=== PATIENT | male | born 1955 | race Caucasian/White ===

== ENCOUNTER → 2019-10-29 10:27 | Outpatient (CLI) | payer OTHER, MEDICAID, SELFPAY ==
--- NOTE | 2019-10-29 | DI.RAD.S_ITS ---
PROCEDURE: XR KNEE RT 3V INDICATIONS: CHRONIC PAIN OF BOTH KNEES TECHNIQUE: 3 views of the knee were acquired. COMPARISON: None. FINDINGS: Bones: No fractures or dislocations. No suspicious bony lesions. Scattered degenerative subchondral sclerosis and spurring. Mild to moderate narrowing of the medial and patellofemoral joint spaces. Soft tissues: No joint effusion. No suspicious soft tissue calcifications. 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 on 10/29/2019 at 12:52 Approved by: Ronald Santana M.D. on 10/29/2019 at 12:53
--- NOTE | 2019-10-29 | DI.RAD.S_ITS ---
PROCEDURE: XR KNEE LT 3V INDICATIONS: CHRONIC PAIN OF BOTH KNEES TECHNIQUE: 3 views of the knee were acquired. COMPARISON: None. FINDINGS: Bones: No fractures or dislocations. No suspicious bony lesions. Scattered degenerative subchondral sclerosis and spurring. Subchondral lucency projects in the medial femoral condyle. Moderate narrowing of the medial joint space. Moderate narrowing of the lateral patellofemoral joint space Soft tissues: No joint effusion. No suspicious soft tissue calcifications. IMPRESSION: Moderate left knee joint degeneration Subchondral lucency in the medial femoral condyle potentially osteochondral defect however could be further assessed with MRI as clinically warranted Dictated by: Ronald Santana M.D. on 10/29/2019 at 12:50 Approved by: Ronald Santana M.D. on 10/29/2019 at 12:52
== END ==
PROVIDERS: PCP Family Medicine; Referring Provider Family Medicine; Visit Provider Family Medicine
DX: M25.561 Pain in right knee (principal); M25.562 Pain in left knee; M17.0 Bilateral primary osteoarthritis of knee; G89.29 Other chronic pain
CPT/HCPCS: 73562

== ENCOUNTER → 2020-01-23 10:47 | Outpatient (CLI) | payer OTHER, MEDICAID, SELFPAY ==
--- NOTE | 2020-01-30 11:14 | PM.PFT.1 ---
Pulmonary Function Test Referral & Results Date Patient Seen: 01/23/20 Requesting provider: Chris Clements Results: The spirometry demonstrates an FVC of 4.29 L which is 85% of predicted. The FEV1 was measured at 3.28 L which is 87% of predicted. The FEV1/FVC ratio was 76 which is 101% of predicted. Following the administration of bronchodilator there was a 15% improvement in FEV1 and a 62% improvement in FEF 25-75%. Lung volumes show an SVC of 3.83 L which is 76% of predicted. The diffusing capacity was measured at 30.62 which is 87% of predicted. The maximum voluntary ventilation was normal Interpretation: This study demonstrates perhaps mild obstructive lung disease based on slight reduction FEV1 as well as modest improvement following bronchodilator with a 15% improvement in FEV1 and a 62% improvement in FEF 25-75% (small airway flow) There is also minimal reduction in lung volumes suggesting mild restrictive lung disease There is also potentially a very minimal reduction in diffusing capacity suggesting an element of disease at the capillary alveolar level
== END ==
PROVIDERS: PCP Family Medicine; Referring Provider Family Medicine; Visit Provider Family Medicine
DX: R06.02 Shortness of breath (principal); R53.83 Other fatigue
CPT/HCPCS: 94060; 94726; 94729

== ENCOUNTER → 2020-09-30 11:22 | Outpatient (CLI) | payer OTHER, MEDICAID, SELFPAY ==
[2020-09-30 20:21] LABS: Alanine Aminotransferase 23 IU/L (<50); Albumin 3.9 g/dL (3.5-5.0); Albumin Globulin Ratio 1.4 (1.0-2.8); Alkaline Phosphatase 78 U/L (38-126); Aspartate Aminotransferase 29 IU/L (17-59); BUN Creatinine Ratio 24.3 (6-22); Bilirubin Total 0.5 mg/dL (0.2-1.3); Blood Urea Nitrogen 17 mg/dL (9-20); Calcium 9.2 mg/dL (8.4-10.2); Carbon Dioxide 24 mmol/L (22-32); Chloride 105 mmol/L (98-107); Estimated Glomerular Filt Rate > 60.0 mL/min (>60); Globulin 2.7 g/dL (1.7-4.1); Glucose 93 mg/dL (80-110); HEMOLYSIS 41 (0-50); Potassium 4.5 mmol/L (3.4-5.1); Sodium 137 mmol/L (137-145); Total Protein 6.6 g/dL (6.3-8.2)
[2020-09-30 20:39] LABS: Vitamin D 25 Hydroxy (D3) 48.6 ng/mL (30.0-100.0)
[2020-09-30 20:51] LABS: TSH w/ Reflex to FT4 1.88 uIU/mL (0.47-4.68)
== END ==
PROVIDERS: PCP Family Medicine; Visit Provider Physician Assistant Medical
DX: R42 Dizziness and giddiness (principal); R53.83 Other fatigue
CPT/HCPCS: 80053; 82306; 84443

== ENCOUNTER → 2020-10-16 13:35 | Outpatient (CLI) | payer OTHER, MEDICAID, SELFPAY ==
[2020-10-16 19:36] LABS: Hemoglobin A1C% w Est Avg Glu 4.8 % (4.0-6.0)
== END ==
PROVIDERS: PCP Family Medicine; Visit Provider Physician Assistant Medical
DX: R42 Dizziness and giddiness (principal); R53.83 Other fatigue
CPT/HCPCS: 83036

== ENCOUNTER → 2021-07-05 09:41 | Outpatient (CLI) | payer OTHER, MEDICAID, SELFPAY ==
[2021-07-05 19:41] LABS: COVID19 - ORCAS (NP or Nasal) Negative (Negative)
== END ==
PROVIDERS: PCP Physician Assistant Medical; Visit Provider Physician Assistant
DX: Z20.822 Contact with and (suspected) exposure to COVID-19 (principal)
CPT/HCPCS: U0003

== ENCOUNTER → 2022-02-25 18:54 | Outpatient (CLI) | payer MEDICARE, OTHER, MEDICAID, SELFPAY ==
--- NOTE | 2022-02-25 18:57 | DI.MRI.S_ITS ---
PROCEDURE: MR HEAD/BRAIN WO/W CON INDICATIONS: Altered mental status, unspecified TECHNIQUE: Noncontrast axial T1 spin echo, axial T2 fast spin echo, sagittal and axial FLAIR, coronal T2 fast spin echo, axial gradient echo, axial diffusion and ADC through the brain. After the administration of contrast, axial and coronal and sagittal T1 spin echo with fat saturation through the brain. COMPARISON: None. FINDINGS: Image quality: Excellent. CSF spaces: Basal cisterns are patent. No extra-axial fluid collections. Ventricles are normal in size and shape. Brain: No midline shift. No intracranial bleeds or masses. No abnormal intracranial enhancement. There is periventricular white matter chronic small vessel ischemic change. The brainstem appears normal. Diffusion-weighted images demonstrate no acute ischemic insults. No chronic ischemic insults. Normal intravascular flow voids are present. Skull and face: Calvarial marrow is normal in signal. Orbits appear normal. Sinuses: Sinuses and mastoids appear clear. IMPRESSION: 1. No acute intracranial process. 2. Mild to moderate periventricular and subcortical white matter T2 hyperintensities most suggestive of chronic microvascular ischemic changes. Dictated by: Thao Lua M.D. on 02/28/2022 at 11:27 Approved by: Thao Lua M.D. on 02/28/2022 at 11:31
== END ==
PROVIDERS: PCP Physician Assistant Medical; Referring Provider Family Medicine; Visit Provider Family Medicine
DX: R41.82 Altered mental status, unspecified (principal)
CPT/HCPCS: 70553; A9579

== ENCOUNTER 2022-08-19 18:15 | Observation (INO) | payer MEDICARE, OTHER, SELFPAY ==
[2022-08-19] VITALS (15 sets, daily range): BP systolic 147–188; BP diastolic 72–95; PULSE 54–68; RESP 15–24; TEMP 36.2–36.6; O2SAT 94–99; BMI 38.0
--- NOTE | 2022-08-19 18:23 | DI.CT.S_ITS ---
PROCEDURE: CT STROKE INDICATIONS: stroke symptoms x20 minutes TECHNIQUE: Noncontrast 4.5 mm thick angled axial sections acquired from the foramen magnum to the vertex, with coronal reformats. For radiation dose reduction, the following was used: automated exposure control, adjustment of mA and/or kV according to patient size. COMPARISON: None. FINDINGS: Image quality: Excellent. CSF spaces: Basal cisterns are patent. No extra-axial fluid collections. Ventricles are normal in size and shape. Brain: No midline shift. No intracranial masses or hemorrhage. Mcgill-white matter interface is normal. Skull and face: Calvarium and visualized facial bones are intact, without suspicious lesions. Sinuses: Visualized sinuses and mastoids are clear. IMPRESSION: CT head without acute intracranial abnormalities. No mass or mass effect visualized. Findings were discussed with Dr. Dawson at 1754 hrs AKST. This study fulfills neurological imaging criteria for inclusion or exclusion of acute stroke therapies based on available published neurological imaging guidelines. Dictated by: Rolando Duong M.D. on 08/19/2022 at 17:53 Approved by: Rolando Duong M.D. on 08/19/2022 at 17:55
--- NOTE | 2022-08-19 18:24 | DI.CT.S_ITS ---
PROCEDURE: CT ANGIO HEAD AND NECK INDICATIONS: stroke symptoms x20 minutes TECHNIQUE: After the administration of intravenous contrast, 1 mm thick sections acquired from the aortic arch through the [place] of [place]. Post-contrast 4.5 mm thick sections then re-acquired from the foramen magnum to the vertex. 3-dimensional sypjbju-[id number]-[id number] (MIP) and/or volume rendering reformats were acquired of the central intracranial vasculature and neck separately. For radiation dose reduction, the following was used: automated exposure control, adjustment of mA and/or kV according to patient size. COMPARISON: [facility], CT, CT STROKE, 08/19/2022, 18:27. [facility], MR, MR HEAD/BRAIN WO/W CON, 02/25/2022, 19:49. FINDINGS: Image quality: Excellent. BRAIN: CSF spaces: Ventricles are normal in size and shape. Basal cisterns are patent. No extra-axial fluid collections. Brain: No midline shift. No intracranial bleeds or masses. Mcgill-white matter interface appears intact. Skull and face: Calvarium and facial bones appear intact, without suspicious lesions. Orbits appear normal. Sinuses: Sinuses and mastoids are clear. HEAD CT ANGIOGRAPHY: Anterior circulation: Intracranial internal carotid arteries are normal in size and flow. The flow within the paired anterior cerebral arteries is normal and symmetric. The flow within the middle cerebral arteries is normal and symmetric. The anterior communicating artery is seen. No aneurysms are seen. Posterior circulation: There is a right vertebral artery dominance. 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 Visualized portions of the vertebral arteries demonstrate normal caliber, and join to form a normal appearing basilar artery. Flow within the posterior cerebral arteries is normal and symmetric. No aneurysms are seen. NECK CT ANGIOGRAPHY: Carotid system: The great vessels demonstrate a conventional anatomy as they arise from the aortic arch. The origins of the common carotid arteries appear patent. The common carotid arteries demonstrate normal caliber and courses. The bifurcation regions are both widely patent. The internal carotid arteries demonstrate normal calibers and courses. Posterior circulation: The origins of the vertebral arteries both appear widely patent. The more superior extracranial portions of both vertebral arteries also demonstrate normal courses and calibers. They join to form a normal appearing basilar artery. Soft tissues: Visualized neck soft tissues demonstrate no suspicious abnormalities. Bones: No suspicious bony lesions. Visualized cervical spine appears normally aligned. IMPRESSION: 1. No acute intracranial process. 2. No areas of hemodynamically significant stenosis, vascular occlusion or aneurysmal dilation within the anterior circulation. 3. No areas of hemodynamically significant stenosis, vascular occlusion or aneurysmal dilation within the posterior circulation. 4. No areas of hemodynamically significant stenosis, vascular occlusion or aneurysmal dilation within the neck vasculature. Any quantitative measurements of stenosis were performed using NASCET criteria. Approved by: Thao Lua M.D. on 08/19/2022 at 19:12
--- NOTE | 2022-08-19 18:31 | ED_ITS ---
HPI - Neuro Symptoms/Deficit General Chief Complaint: Neuro Symptoms/Deficit Stated Complaint: Double vision, L cheek slight numbness Time Seen by Provider: 08/19/22 18:23 Source: patient Mode of arrival: Ambulatory History of Present Illness HPI Narrative: 66M former smoker without other medical problems presents with his daughter with the chief complaint of double vision, facial tingling and dizziness since about 1800. He'd been in his normal state of health until exiting the [facility] when he noticed the symptoms as stated. Was activated as a code stroke given these symptoms and the time of onset. He denies any headache, fever or recent trauma. He states that the most notable symptom is double vision that is present with both eyes open and also present with either eye closed. He denies any obvious extremity numbness, tingling or weakness. He does not think the dizziness he has seems to affect his ability to ambulate. He is had no chest pain or shortness of breath. He denies nausea, vomiting or diarrhea. He is no history of stroke or stroke-like symptoms On Anticoagulants: No Related Data Home Medications Medication Instructions Recorded Confirmed bupropion HCl 100 mg tablet 50 mg PO DAILY 09/29/20 08/19/22 lamotrigine 200 mg tablet 100 mg PO DAILY 09/29/20 08/19/22 risperidone 1 mg tablet 1 mg PO DAILY 09/29/20 08/19/22 Allergies Allergy/AdvReac Type Severity Reaction Status Date / Time No Known Drug Allergies Allergy Verified 08/19/22 18:20 Review of Systems Review of Systems Narrative: GENERAL: Denies chills, fatigue, malaise, fever, sweats. HEENT: Denies sinus pain, ear pain, sore throat, difficulty swallowing, dizziness. RESPIRATORY: Denies dyspnea, cough, wheezing, hemoptysis, sputum. CARDIOVASCULAR: Denies chest pain, palpitations, orthopnea, edema, GASTROINTESTINAL: Denies nausea, vomiting, abdominal pain, diarrhea, constipation, melena. : Denies dysuria, frequency, incontinence, hematuria, urinary retention. MUSCULOSKELETAL: denies weakness, joint pain, or bony pain SKIN: Denies rash, skin lesions, or other NEUROLOGIC: See HPI PSYCHIATRIC: No concerning psychosocial issues. 12 point review of systems is negative except for those stated above Hematologic/Lymphatic On Anticoagulants: No Patient History Medical History Low vitamin D level Social History household members: none Smoking Status: Former smoker alcohol intake: never Smoking Status: Former smoker alcohol intake frequency: holidays/special occasions only Substance Use Type: does not use Exam Initial Vital Signs Initial Vital Signs: Vital Signs Temperature 97.1 F L 08/19/22 18:20 Pulse Rate 66 08/19/22 18:20 Respiratory Rate 15 08/19/22 18:20 Blood Pressure 170/90 H 08/19/22 18:20 Pulse Oximetry 97 08/19/22 18:20 Oxygen Delivery Method Room Air 08/19/22 18:20 Scores NIH Stroke Scale Level of Conciousness: Alert, keenly responsive Ask month/age: Answers both questions correctly. Open/close eyes, close hand: Performs both tasks correctly Best gaze horizontal: Normal Visual nieves: No visual loss Facial palsy: Minor paralysis, flattened nasolabial fold, asymmetry on smiling Left arm drift: Drifts down, not to bed Right arm drift: No drift for full 10 sec Left leg drift: No drift for full 5 sec Right leg drift: No drift for full 5 sec Limb ataxia: Present in one limb Sensory on face/arms/legs: Mild to moderate sensory loss, can tell touch Best language: No aphasia, normal Dysarthria: Normal Extinction or inattention: No abnormality Total NIH Stroke scale score: 4 Course Course Course Narrative: tPA (Tissue Plasminogen Activator) Dosing for Stroke Calculator from [employer] on 08/19/2022 All calculations should be rechecked by clinician prior to use RESULT SUMMARY: 9.0 mg Bolus dose, given IV over 1 min 81.0 mg Infusion, given IV over 60 mins 10.0 mg Waste, to be discarded INPUTS: Weight ?> 127 kg tPA Contraindications for Ischemic Stroke from [employer] on 08/19/2022 All calculations should be rechecked by clinician prior to use RESULT SUMMARY: Patient eligible for tPA. INPUTS: Age >=8 ?> 1 = Yes Clinical diagnosis of ischemic stroke causing neurological deficit ?> 1 = Yes Time of symptom onset ?> 1 = Yes Intracranial hemorrhage on CT ?> 0 = No Clinical presentation suggests subarachnoid hemorrhage ?> 0 = No Neurosurgery, head trauma, or stroke in past 3 months ?> 0 = No Uncontrolled hypertension (>185 mmHg SBP or >110 mmHg DBP) ?> 0 = No History of intracranial hemorrhage ?> 0 = No Known intracranial arteriovenous malformation, neoplasm, or aneurysm ?> 0 = No Active internal bleeding ?> 0 = No Suspected/confirmed endocarditis ?> 0 = No Known bleeding diathesis ?> 0 = No Abnormal blood glucose ( ?> 0 = No Only minor or rapidly improving stroke symptoms ?> 0 = No Major surgery or serious non-head trauma in the previous 14 days ?> 0 = No History of gastrointestinal or urinary tract hemorrhage within 21 days ?> 0 = No Seizure at stroke onset ?> 0 = No Recent arterial puncture at a noncompressible site ?> 0 = No Recent lumbar puncture ?> 0 = No Post myocardial infarction pericarditis ?> 0 = No ?> 0 = No Age >80 years ?> 0 = No History of prior stroke and diabetes ?> 0 = No Any active anticoagulant use (even with INR ?> 0 = No NIHSS >25 ?> 0 = No CT shows multilobar infarction (hypodensity >1/3 cerebral hemisphere) ?> 0 = No Orders Ordered: ED Orders 08/19/22 18:23 CT Stroke Stat Complete Blood Count AUTO DIFF Stat Comprehensive Metabolic Panel Stat Ethanol (ETOH) Stat PTT Partial Thromboplastin Nabeel Stat Prothrombin Time INR Stat Troponin & CK Cardiac Panel Stat 08/19/22 18:24 CT angio head and neck Stat 08/19/22 19:07 EKG-12 Lead Stat 08/19/22 19:16 COVID19 -Nasal RAPID Stat 08/19/22 19:23 Urinalysis and Microscopic Stat 08/19/22 19:37 Urine Drug Screen, Rapid Stat Acetaminophen (Acetaminophen 325 Mg Tablet) 650 mg PO Q6H PRN PRN Reason: Fever/Mild Pain (1-3) Aspirin (Aspirin Ec 81 Mg Tablet) 81 mg PO DAILY [facility] Atorvastatin Calcium (Atorvastatin 20 Mg Tablet) 80 mg PO BEDTIME [facility] Last Admin: 08/19/22 22:56 Dose: 80 mg Documented By: MS Cefdinir (Cefdinir 300 Mg Capsule) 300 mg PO BID [facility] Last Admin: 08/19/22 22:56 Dose: 300 mg Documented By: MS Heparin Sodium (Porcine) (Heparin 5,000 Unit/Ml Vial) 5,000 unit SUBCUT BID [facility] Last Admin: 08/19/22 22:56 Dose: 5,000 unit Documented By: MS Lamotrigine (Lamotrigine 100 Mg Tablet) 200 mg PO BEDTIME [facility] Last Admin: 08/19/22 22:56 Dose: 200 mg Documented By: MS Naloxone HCl (Naloxone 0.4 Mg/Ml Vial) 0.2 mg IV Q2MIN PRN PRN Reason: Opiate Reversal Ondansetron HCl (Ondansetron 4 Mg/2 Ml Inj) 4 mg IV Q8HR PRN PRN Reason: Nausea And Vomiting Risperidone (Risperidone 1 Mg Tablet) 1 mg PO DAILY [facility] Last Admin: 08/19/22 22:56 Dose: 1 mg Documented By: MS Discontinued Medications Aspirin (Aspirin 81 Mg Chew Tab) 324 mg PO NOW ONE Stop: 08/19/22 20:48 Last Admin: 08/19/22 21:00 Dose: 324 mg Documented By: GC Reevaluation(s) Reevaluation #1: repeat NIHSS demonstrates improvement still some double vision no longer a measurable LUE weakness, no longer measurable ataxia still some numbness NIH Stroke Scale 1a. LOC: Patient is alert and keenly responsive (0) 1b. LOC Questions: Patient answers both LOC questions accurately (0) 1c. LOC Commands: Patient performs both tasks correctly (0) 2. Best Gaze: Normal (0) 3. Visual: No visual loss (0) 4. Facial palsy: Normal symmetrical movements (1) 5. Motor arm: No drift (0) 6. Motor leg: No drift (0) 7. Limb ataxia: Absent (0) 8. Sensory: Normal (1) 9. Best language: No aphasia; normal (0) 10. Dysarthria: Normal (0) 11. Extinction and inattention: No abnormality (0) NIHSS: 2 Patient has improved symptoms as noted. We had a discussion about holding off on tPA right now with continued repeat evaluation knowing that we are within the window to administer for some time still. Time: 18:57 Reevaluation #2: 1944 -patient currently symptom-free, NIH stroke scale 0 Consultations Consultation #1: call to stroke Initial BP 170/90 BG 82 NIHSS 4 Time: 18:35 Consultation #2: Stroke on the phone [phone] Dr. Colby agrees with use of TPA Consultation #3: hospitalist happy to accept Vital Signs Vital signs: Vital Signs - 8 hr 08/19/22 18:58 08/19/22 19:00 08/19/22 19:01 Pulse Rate 68 68 67 Respiratory Rate Blood Pressure Pulse Oximetry 97 96 96 Oxygen Delivery Method Room Air 08/19/22 19:01 08/19/22 19:30 08/19/22 19:30 Pulse Rate 62 Respiratory Rate 23 Blood Pressure 162/90 H 188/91 H Pulse Oximetry 97 Oxygen Delivery Method 08/19/22 20:00 08/19/22 20:01 08/19/22 20:01 Pulse Rate 61 62 Respiratory Rate 20 24 Blood Pressure 151/72 H Pulse Oximetry 97 96 Oxygen Delivery Method 08/19/22 20:30 08/19/22 20:30 Pulse Rate 63 Respiratory Rate 20 Blood Pressure 157/74 H Pulse Oximetry 97 Oxygen Delivery Method MDM - Neuro Symptoms/Deficit Lab Data 08/19/22 18:23 08/19/22 18:23 Labs: Lab Results 08/19/22 08/19/22 08/19/22 Range/Units 18:23 18:23 18:23 WBC 7.6 (4.5-11.0) X10^3/uL RBC 4.61 (4.5-5.9) X10^6/uL Hgb 14.0 (13.5-17.5) g/dL Hct 40.7 L (41-53) % MCV 88.4 (80-100) fL MCH 30.4 (26-34) PG MCHC 34.4 (30-36) % RDW 13.9 (11.6-14.8) % Plt Count 183 (150-400) X10^3/uL Neut % (Auto) 53.8 (50-75) % Lymph % (Auto) 30.6 (25-40) % Arthur % (Auto) 9.3 (3-14) % Eos % (Auto) 5.6 H (2-4) % Baso % (Auto) 0.7 (0-2) % Neut # (Auto) 4100 (0633-2552) /uL Lymph # (Auto) 2300 (1287-5019) /uL Arthur # (Auto) 700 (0-900) /uL Eos # (Auto) 400 (0-450) /uL Baso # (Auto) 100 (0-100) /uL PT 11.5 (10.1-12.7) SECONDS INR 1.0 (0.9-1.3) APTT 34 (26-36) SECONDS Sodium 139 (137-145) mmol/L Potassium 4.0 (3.4-5.1) mmol/L Chloride 104 (98-107) mmol/L Carbon Dioxide 27 (22-32) mmol/L BUN 17 (9-20) mg/dL Creatinine 1.19 (0.66-1.25) mg/dL Estimated GFR > 60 (>60) mL/min BUN/Creatinine Ratio 14.3 (6-22) Glucose 89 (80-110) mg/dL Calcium 8.8 (8.4-10.2) mg/dL Total Bilirubin 0.4 (0.2-1.3) mg/dL AST 24 (17-59) IU/L ALT 27 (<50) IU/L Alkaline Phosphatase 69 (38-126) U/L Total Creatine Kinase 66 (55-170) U/L CK-MB (CK-2) TNP CK-MB (CK-2) Rel Index TNP Troponin I < 0.012 (0.01-0.034) ng/mL Total Protein 7.1 (6.3-8.2) g/dL Albumin 4.3 (3.5-5.0) g/dL Globulin 2.8 (1.7-4.1) g/dL Albumin/Globulin Ratio 1.5 (1.0-2.8) Urine Color Urine Appearance Urine pH (4.5-8.0) Ur Specific [place] (1.000-1.035) Urine Protein (Negative) Urine Glucose (UA) (Negative) g/dL Urine Ketones (NEGATIVE) Urine Occult Blood (Negative) Urine Nitrate (Negative) Urine Bilirubin (NEGATIVE) Urine Urobilinogen (0.2) E.U./dL Ur Leukocyte Esterase (NEGATIVE) Urine RBC (0-5/HPF) Urine WBC (0-5/HPF) Ur Squamous Epith Cells (0-5/HPF) Urine Bacteria (None) Ur Culture Indicated? U Opiates 300ng/mL cut (Negative) Ur Oxycodone Screen (Negative) Urine Methadone Screen (Negative) Ur Barbiturates Screen (Negative) U Tricyclic Antidepress (Negative) Ur Phencyclidine Scrn (Negative) Ur Amphetamines Screen (Negative) U Methamphetamines Scrn (Negative) Ur MDMA Scrn (Ecstasy) (Negative) U Benzodiazepines Scrn (Negative) Urine Cocaine Screen (Negative) U Marijuana (THC) Screen (Negative) Ethyl Alcohol < 10 ( - 10) mg/dL SARS-CoV-2 (PCR) (Negative) 08/19/22 08/19/22 08/19/22 Range/Units 19:16 19:23 19:37 WBC (4.5-11.0) X10^3/uL RBC (4.5-5.9) X10^6/uL Hgb (13.5-17.5) g/dL Hct (41-53) % MCV (80-100) fL MCH (26-34) PG MCHC (30-36) % RDW (11.6-14.8) % Plt Count (150-400) X10^3/uL Neut % (Auto) (50-75) % Lymph % (Auto) (25-40) % Arthur % (Auto) (3-14) % Eos % (Auto) (2-4) % Baso % (Auto) (0-2) % Neut # (Auto) (2492-8356) /uL Lymph # (Auto) (8148-6313) /uL Arthur # (Auto) (0-900) /uL Eos # (Auto) (0-450) /uL Baso # (Auto) (0-100) /uL PT (10.1-12.7) SECONDS INR (0.9-1.3) APTT (26-36) SECONDS Sodium (137-145) mmol/L Potassium (3.4-5.1) mmol/L Chloride (98-107) mmol/L Carbon Dioxide (22-32) mmol/L BUN (9-20) mg/dL Creatinine (0.66-1.25) mg/dL Estimated GFR (>60) mL/min BUN/Creatinine Ratio (6-22) Glucose (80-110) mg/dL Calcium (8.4-10.2) mg/dL Total Bilirubin (0.2-1.3) mg/dL AST (17-59) IU/L ALT (<50) IU/L Alkaline Phosphatase (38-126) U/L Total Creatine Kinase (55-170) U/L CK-MB (CK-2) CK-MB (CK-2) Rel Index Troponin I (0.01-0.034) ng/mL Total Protein (6.3-8.2) g/dL Albumin (3.5-5.0) g/dL Globulin (1.7-4.1) g/dL Albumin/Globulin Ratio (1.0-2.8) Urine Color Yellow Urine Appearance Clear Urine pH 6.5 (4.5-8.0) Ur Specific [place] <=1.005 (1.000-1.035) Urine Protein Negative (Negative) Urine Glucose (UA) Negative (Negative) g/dL Urine Ketones Negative (NEGATIVE) Urine Occult Blood Negative (Negative) Urine Nitrate Negative (Negative) Urine Bilirubin Negative (NEGATIVE) Urine Urobilinogen 0.2 (0.2) E.U./dL Ur Leukocyte Esterase Negative (NEGATIVE) Urine RBC None seen (0-5/HPF) Urine WBC 0-1/hpf (0-5/HPF) Ur Squamous Epith Cells 0-1 /hpf (0-5/HPF) Urine Bacteria None seen (None) Ur Culture Indicated? Cult not indicated U Opiates 300ng/mL cut Negative (Negative) Ur Oxycodone Screen Negative (Negative) Urine Methadone Screen Negative (Negative) Ur Barbiturates Screen Negative (Negative) U Tricyclic Antidepress Negative (Negative) Ur Phencyclidine Scrn Negative (Negative) Ur Amphetamines Screen Negative (Negative) U Methamphetamines Scrn Negative (Negative) Ur MDMA Scrn (Ecstasy) Negative (Negative) U Benzodiazepines Scrn Negative (Negative) Urine Cocaine Screen Negative (Negative) U Marijuana (THC) Screen Negative (Negative) Ethyl Alcohol ( - 10) mg/dL SARS-CoV-2 (PCR) Negative (Negative) Point of Care Testing Glucose POC 82 Urine Dip Bedside Urine Glucose Negative Bedside Urine Bilirubin - Negative Bedside Urine Ketone - Negative Urine Specific [place] 1.005 Bedside Urine Occult Blood - Negative Bedside Urine pH 7.5 Bedside Urine Protein - Negative Bedside Urine Urobilinogen - Negative Bedside Urine Nitrite - Negative Bedside Urine Leukocytes - Negative Esterase MDM Narrative Medical decision making narrative: CC: 66-year-old with sudden onset neuro symptoms at 6:05 p.m. Complicating co-morbidities: Age Data collected from: Patient Medical records reviewed: Prior notes reviewed in our EMR Differential considered, but not limited to: Stroke, TIA, versus other Exam documented above, pertinent findings include: Initially there is measurable left-sided facial weakness, numbness, left upper extremity drift and ataxia. These symptoms resolve over the course of the visit Lab Test results independently reviewed as above. Pertinent findings: No significant abnormal findings Independently reviewed EKG as above Imaging studies independently reviewed: CT of head as well as CTA head and neck without specific abnormality that requires intervention Scores Used: NIHSS MIPS Elements: #187: Stroke & Stroke Rehabilitation: Thrombolytic Therapy [x]Patient arrived within 3 hours of symptoms onset, but had total resolution of symptoms, no longer TPA candidate Consultations: Initial call to Neuro (Sukumar) see details above. Followed back with Dr. Caraballo ( Stroke) to notify that symptoms resolved and patient was no longer a tPA candidate. Agreed with the plan to admit here and performed typical stroke evaluation Treatments: Aspirin Re-evaluations: Over the course of patient's visit symptoms resolved Discussion: Patient with sudden onset focal neurologic findings detailed above, initially patient activated as a code stroke and multiple consultations with Neurology, patient a tPA candidate initially, decision to not administer tPA once patient's symptoms were improving and then eventually resolved. Patient requires admission for further workup including echocardiogram, MRI among others Critical Care Time Critical Care Time Critical Care Time: Yes Total Critical Care Time: 30 Attestation: The high probability of a clinically significant, sudden or life threatening deterioration of the [Neuro] system(s) required my full and direct attention, intervention and personal management. The aggregate critical care time was [30] minutes. This time is in addition to time spent performing reported procedures but includes the following: [x] Data Review and interpretation [x] Patient assessment and monitoring of vital signs [x] Documentation [x] Medication orders and management Discharge Plan Departure Patient Disposition: Admitted as Observation Clinical Impression: Brain TIA Admit Date/Time: 08/19/22 20:55 Admit Provider: Praveen Payne
[2022-08-19 18:39] LABS: Add Manual Diff / Slide Review NO; Basophils Absolute Auto 100 /uL (0-100); Basophils Percent Auto 0.7 % (0-2); Eosinophils Absolute Auto 400 /uL (0-450); Eosinophils Percent Auto 5.6 % (2-4); Hematocrit 40.7 % (41-53); Lymphocytes Absolute Auto 2300 /uL (1100-4500); Lymphocytes Percent Auto 30.6 % (25-40); Mean Corpuscular HGB Conc 34.4 % (30-36); Mean Corpuscular Hemoglobin 30.4 PG (26-34); Mean Corpuscular Volume 88.4 fL (80-100); Monocytes Absolute Auto 700 /uL (0-900); Monocytes Percent Auto 9.3 % (3-14); Neutrophils Absolute Auto 4100 /uL (1500-7000); Neutrophils Percent Auto 53.8 % (50-75); Platelet Count 183 X10^3/uL (150-400); Red Blood Cell Count 4.61 X10^6/uL (4.5-5.9); Red Cell Distribution Width 13.9 % (11.6-14.8); White Blood Cell Count 7.6 X10^3/uL (4.5-11.0)
[2022-08-19 18:52] LABS: Prothrombin Time 11.5 SECONDS (10.1-12.7)
[2022-08-19 18:55] LABS: PTT Partial Thromboplastin Tim 34 SECONDS (26-36)
[2022-08-19 18:58] LABS: Alanine Aminotransferase 27 IU/L (<50); Albumin 4.3 g/dL (3.5-5.0); Albumin Globulin Ratio 1.5 (1.0-2.8); Alkaline Phosphatase 69 U/L (38-126); Aspartate Aminotransferase 24 IU/L (17-59); BUN Creatinine Ratio 14.3 (6-22); Bilirubin Total 0.4 mg/dL (0.2-1.3); Blood Urea Nitrogen 17 mg/dL (9-20); Calcium 8.8 mg/dL (8.4-10.2); Carbon Dioxide 27 mmol/L (22-32); Chloride 104 mmol/L (98-107); Creatine Kinase 66 U/L (55-170); Estimated Glomerular Filt Rate > 60 mL/min (>60); Ethanol (ETOH) < 10 mg/dL; Globulin 2.8 g/dL (1.7-4.1); Glucose 89 mg/dL (80-110); HEMOLYSIS < 15 (0-50); Sodium 139 mmol/L (137-145); Total Protein 7.1 g/dL (6.3-8.2)
[2022-08-19 19:09] LABS: Troponin I < 0.012 ng/mL (0.01-0.034)
[2022-08-19 19:34] LABS: COVID19 -Nasal RAPID Negative (Negative)
[2022-08-19 20:00] LABS: UR Morphine/Opiate cutoff 300 Negative (Negative); Ur Creatinine Normal (Normal); Ur Specific Gravity Normal (Normal); Urine Amphetamines Negative (Negative); Urine Barbiturates Negative (Negative); Urine Benzodiazepines Negative (Negative); Urine Cocaine Negative (Negative); Urine MDMA Negative (Negative); Urine Methadone Negative (Negative); Urine Methamphetamines Negative (Negative); Urine Oxycodone Negative (Negative); Urine Phencyclidine Negative (Negative); Urine Tetrahydrocannabinol Negative (Negative); Urine Tricyclic Antidepressant Negative (Negative); Urine pH Normal (Normal)
[2022-08-19 20:42] LABS: Appearance Urine UA CLEAR; Bilirubin Urine UA NEGATIVE (NEGATIVE); Color Urine UA YELLOW; Glucose Urine UA NEGATIVE (Negative); Ketones Urine UA NEGATIVE (NEGATIVE); Leukocyte Esterase Urine UA NEGATIVE (NEGATIVE); Nitrite Urine UA NEGATIVE (Negative); Occult Blood Urine UA NEGATIVE (Negative); Protein Urine UA NEGATIVE (Negative); Specific Gravity Urine UA <=1.005 (1.000-1.035); Urobilinogen Urine UA 0.2 E.U./dL (0.2); pH Urine UA 6.5 (4.5-8.0)
[2022-08-19 20:55] LABS: Bacteria Urine None Seen; Culture Indicated Urine Cult Not Indicated; RBC Urine None Seen (0-5/HPF); Squamous Epithelial Cell Urine 0-1 /HPF (0-5/HPF); WBC Urine 0-1/HPF (0-5/HPF)
[2022-08-19] MEDS: ASPIRIN 81 MG CHEW TAB 324 MG PO (21:00)
--- NOTE | 2022-08-19 21:00 | DI.MRI.S_ITS ---
PROCEDURE: MR HEAD/BRAIN WO CON INDICATIONS: tia vs cva TECHNIQUE: Noncontrast axial T1 spin echo, axial T2 fast spin echo, sagittal and axial FLAIR, coronal T2 fast spin echo, axial gradient echo, axial diffusion and ADC through the brain. COMPARISON: [facility], CT, CT ANGIO HEAD AND NECK, 08/19/2022, 18:27. FINDINGS: Image quality: Good CSF spaces: Basal cisterns are patent. Lateral ventricles are symmetric. Volume: Volume loss. Periventricular white matter signal abnormality most commonly seen with small vessel disease. These findings are [id number] Brain: No intracranial hemorrhage. Mcgill-white differentiation is grossly maintained. No acute diffusion restriction. Craniofacial structures: No displaced fracture. Sinuses are clear. Orbits are intact. IMPRESSION: No acute infarct. No acute hemorrhage identified. Dictated by: Isauro Gomez M.D. on 08/20/2022 at 8:28 Approved by: Isauro Gomez M.D. on 08/20/2022 at 8:30
--- NOTE | 2022-08-19 21:03 | PM.HP.1 ---
History of Present Illness History of Present Illness Date Patient Seen: 08/19/22 Time Patient Seen: 21:15 Chief complaint: Double vision, L cheek slight numbness Narrative: Mr. Baeza is a 66M with PMH former smoker, high blood pressure not on any medications, bipolar, chronic bronchitis who presents to the hospital with [place] noted he had double vision with one image above the other. He had no headache or fever. He also noted dizziness, left sided facial tingling. He had no chest pain or shortness of breath. No nausea, vomiting, or diarrhea. In the ED workup was done, vitals notable for afebrile, heart rate in the 60s, blood pressure 170s/90s. NIH initially was 4 and then on repeat was 0. Labs notable for WBC 7.6, hgb 14, plts 183. Na 139, k 4.0, creatinine 1.19. Trop negtive. EKG with no acute ischemia. CT head with no acute process. CTA head/neck with no acute process. Telestroke was consulted and initially plan was for TPA, but as his symptoms resovled this was not gievn. His symptoms began at approximately 1800. He was given aspirin and admitted for further treatment. Patient History Medical History Low vitamin D level Family & Social History Safety & Behavioral: Feels Safe in Current Yes Environment Been Physically Hurt or No Threatened By a Person Tobacco & Substance use: Smoking Status Former smoker alcohol intake frequency holiday/special occasion Substance Use Type does not use Meds Home Medications and Allergies Home Medications Medication Instructions Recorded Confirmed Type bupropion HCl 100 mg tablet 50 mg PO DAILY 09/29/20 04/11/22 History lamotrigine 200 mg tablet 100 mg PO DAILY 09/29/20 04/11/22 History risperidone 1 mg tablet 1 mg PO DAILY 09/29/20 04/11/22 History Allergies Allergy/AdvReac Type Severity Reaction Status Date / Time No Known Drug Allergies Allergy Verified 08/19/22 18:20 Review of Systems Review of Systems Narrative: 14 systems reviewed and negative aside from what is noted in HPI Exam Vital Signs (past 8 hours): - 08/19/22 18:20 08/19/22 18:58 08/19/22 19:00 Temperature 97.1 F L Pulse Rate 66 68 68 Respiratory Rate 15 Blood Pressure 170/90 H Pulse Oximetry 97 97 96 Oxygen Delivery Method Room Air Room Air 08/19/22 19:01 08/19/22 19:01 08/19/22 19:30 Temperature Pulse Rate 67 Respiratory Rate Blood Pressure 162/90 H 188/91 H Pulse Oximetry 96 Oxygen Delivery Method 08/19/22 19:30 08/19/22 20:00 08/19/22 20:01 Temperature Pulse Rate 62 61 62 Respiratory Rate 23 20 24 Blood Pressure Pulse Oximetry 97 97 96 Oxygen Delivery Method 08/19/22 20:01 Temperature Pulse Rate Respiratory Rate Blood Pressure 151/72 H Pulse Oximetry Oxygen Delivery Method Oxygen Delivery Method Room Air Narrative Exam Narrative: GEN: no acute distress HEENT: moist mucous membranes, PERRL NECK: trachea midline, no jvd PULM: clear bilaterally, no wheezes, rhonchi, rales CV: regular rate and rhythm, no murmurs ABD: soft, nontender, nondistended, no organomegaly EXT: warm and well perfused, with no edema NEURO: awake, alert, oriented, no focal deficits noted, CN 2-12 intact, upper and lower extremity strength 5/5, no pronator drift, sensation intact in upper and lower extremities, sunil rapid alternating movements Objective Labs 08/19/22 18:23 08/19/22 18:23 Labs: Laboratory Results - last 24 hr 08/19/22 08/19/22 08/19/22 18:23 18:23 18:23 WBC 7.6 RBC 4.61 Hgb 14.0 Hct 40.7 L MCV 88.4 MCH 30.4 MCHC 34.4 RDW 13.9 Plt Count 183 Neut % (Auto) 53.8 Lymph % (Auto) 30.6 Dolores % (Auto) 9.3 Eos % (Auto) 5.6 H Baso % (Auto) 0.7 Neut # (Auto) 4100 Lymph # (Auto) 2300 Dolores # (Auto) 700 Eos # (Auto) 400 Baso # (Auto) 100 PT 11.5 INR 1.0 APTT 34 Sodium 139 Potassium 4.0 Chloride 104 Carbon Dioxide 27 BUN 17 Creatinine 1.19 Estimated GFR > 60 BUN/Creatinine Ratio 14.3 Glucose 89 Calcium 8.8 Total Bilirubin 0.4 AST 24 ALT 27 Alkaline Phosphatase 69 Total Creatine Kinase 66 CK-MB (CK-2) TNP CK-MB (CK-2) Rel Index TNP Troponin I < 0.012 Total Protein 7.1 Albumin 4.3 Globulin 2.8 Albumin/Globulin Ratio 1.5 Urine Color Urine Appearance Urine pH Ur Specific [place] Urine Protein Urine Glucose (UA) Urine Ketones Urine Occult Blood Urine Nitrate Urine Bilirubin Urine Urobilinogen Ur Leukocyte Esterase Urine RBC Urine WBC Ur Squamous Epith Cells Urine Bacteria Ur Culture Indicated? U Opiates 300ng/mL cut Ur Oxycodone Screen Urine Methadone Screen Ur Barbiturates Screen U Tricyclic Antidepress Ur Phencyclidine Scrn Ur Amphetamines Screen U Methamphetamines Scrn Ur MDMA Scrn (Ecstasy) U Benzodiazepines Scrn Urine Cocaine Screen U Marijuana (THC) Screen Ethyl Alcohol < 10 SARS-CoV-2 (PCR) 08/19/22 08/19/22 08/19/22 19:16 19:23 19:37 WBC RBC Hgb Hct MCV MCH MCHC RDW Plt Count Neut % (Auto) Lymph % (Auto) Dolores % (Auto) Eos % (Auto) Baso % (Auto) Neut # (Auto) Lymph # (Auto) Dolores # (Auto) Eos # (Auto) Baso # (Auto) PT INR APTT Sodium Potassium Chloride Carbon Dioxide BUN Creatinine Estimated GFR BUN/Creatinine Ratio Glucose Calcium Total Bilirubin AST ALT Alkaline Phosphatase Total Creatine Kinase CK-MB (CK-2) CK-MB (CK-2) Rel Index Troponin I Total Protein Albumin Globulin Albumin/Globulin Ratio Urine Color Yellow Urine Appearance Clear Urine pH 6.5 Ur Specific [place] <=1.005 Urine Protein Negative Urine Glucose (UA) Negative Urine Ketones Negative Urine Occult Blood Negative Urine Nitrate Negative Urine Bilirubin Negative Urine Urobilinogen 0.2 Ur Leukocyte Esterase Negative Urine RBC None seen Urine WBC 0-1/hpf Ur Squamous Epith Cells 0-1 /hpf Urine Bacteria None seen Ur Culture Indicated? Cult not indicated U Opiates 300ng/mL cut Negative Ur Oxycodone Screen Negative Urine Methadone Screen Negative Ur Barbiturates Screen Negative U Tricyclic Antidepress Negative Ur Phencyclidine Scrn Negative Ur Amphetamines Screen Negative U Methamphetamines Scrn Negative Ur MDMA Scrn (Ecstasy) Negative U Benzodiazepines Scrn Negative Urine Cocaine Screen Negative U Marijuana (THC) Screen Negative Ethyl Alcohol SARS-CoV-2 (PCR) Negative Assessment & Plan Assessment & Plan narrative: 1. Probable TIA -presented with transient facial droop, lateralized numbness and vision changes -initial NIH of 4, then improved to 0 -CT head and CTA head/neck with no acute process noted -EKG normal sinus rhythm -ordered aspirin, statin -swallow eval -nih score q4 -ordered MRI brain, echo for further evaluation -allow for permissive hypertension -check lipids, statin 2. Chronic bronchitis -continue cefdinir 3. Bipolar disorder -continue lamotrigine, risperidone I have discussed plan with the patinet. I have discussed the plan of care with ED physician and bedside nurse. I have reviewed labs, ekg and ct scans. CODE: Full Proxy:jessica Tan Time Spent With Patient Critical Care time: I spent a total of [] minutes of critical care time on this patient's care today; this time is exclusive of procedural time. Quality [facility] - Meds 'Current medications' to include all prescriptions, [id number] products, herbals, cannabis/cannabidiol products, and vitamin/mineral/dietary (nutritional) supplements. I have utilized all available resources to obtain, update, or review the patient?s current medications. [If Yes, STOP here]: Yes
--- NOTE | 2022-08-19 22:16 | DI.ECHO.S_ITS ---
[place] [facility]---------+ [facility] +---------+ : : [address] : : : : [id number] : : : : Phone: [phone]+ Echocardiogram Report + + :Name: EMILIANO AVERY Study Date: 08/20/2022 Height: 72 in : :[facility] ReadingLocation: Weight: 280 lb : : Gender: Male BSA: 2.5 m2 : :: 1955 Age: 66 yrs BP: 137/72 mmHg: :Reason For Study: TIA : :Ordering Physician: GENESIS, : :THOMAS Performed By: Gracy Harry : :Referring: THOMAS HURTADO : + + Interpretation Summary Normal sinus rhythm. Normal LV size and wall thickness. Normal wall motion and LV systolic function. Ejection fraction is 60-65%. No significant valvular abnormalities. Normal normal chamber sizes. No PFO based on bubble study Estimated PA systolic pressure is 38 mmHg assuming right atrial pressure of 10 mmHg. No prior study available for comparison. Procedure: A two-dimensional transthoracic echocardiogram with color flow and Doppler was performed. The study quality was technically adequate. There is no prior echocardiogram noted for this patient. The patient was in sinus rhythm with heart rates between 60-72 bpm during the exam. Left Ventricle: The left ventricle is normal in size and wall thickness. The ejection fraction is estimated to be 60-65%. Right Ventricle: The right ventricle is normal in size and function. Atria: The left atrial size is normal. Right atrial size is normal. There is no Doppler evidence for an interatrial shunt. Mitral Valve: The mitral valve is normal in structure and function. There is trace mitral regurgitation. Aortic Valve: The aortic valve is trileaflet. The aortic valve opens well. There is no aortic valve stenosis. No aortic regurgitation is present. Tricuspid Valve: The tricuspid valve is normal in structure and function. There is trace tricuspid regurgitation. Pulmonic Valve: The pulmonic valve leaflets are thin and pliable; valve motion is normal. There is no pulmonic valvular regurgitation. Great Vessels: The aortic root is normal size. The dimensions of the ascending aorta are normal. The inferior vena cava was not well visualized. Pericardium/ Pleura There is no pericardial effusion. There is no pleural effusion. MMode/2D Measurements & Calculations LVIDd: 5.7 cm LVOT diam: 2.0 cm LVIDs: 3.7 cm Ao root diam: 3.2 cm FS: 35.4 % asc Aorta Diam: 3.4 cm EPSS: 1.1 cm Ao Arch Diam (Prox Trans): 3.1 cm IVSd: 0.87 cm LVPWd: 0.88 cm LV barth. diameter/BSA (cm/m^2): 2.3 LV sys. diameter/BSA (cm/m^2): 1.5 LA A2 area: 19.3 cm2 RA long axis: 5.1 cm LA A4 area: 23.7 cm2 RA area: 13.9 cm2 LA length (vol): 5.7 cm RA vol: 32.3 ml LA vol: 67.8 ml RA : 13.1 ml/m2 LA vol index: 27.6 ml/m2 RVD1 (basal): 3.5 cm RVD2 (mid): 3.0 cm TAPSE: 2.3 cm Doppler Measurements & Calculations Ao V2 max: 139.5 cm/sec LVOT Max Fermín: 92.9 cm/sec Ao V2 mean: 104.0 cm/sec LV V1 max P.5 mmHg Ao max P.8 mmHg LV V1 VTI: 21.6 cm Ao mean P.6 mmHg RHEA(I,D): 2.3 cm2 Ao V2 VTI: 29.3 cm RHEA(V,D): 2.1 cm2 sev ratio: 0.74 RHEA indexed to BSA (cm^2/m^2): 0.95 MV E max fermín: 73.4 cm/sec TR max fermín: 268.6 cm/sec MV A max fermín: 54.6 cm/sec TR max P.9 mmHg MV E/A: 1.3 PA V2 max: 82.0 cm/sec Med Peak E' Fermín: 7.1 cm/sec PA V2 mean: 56.7 cm/sec E/E' med: 10.3 PA mean P.5 mmHg Lat Peak E' Fermín: 8.5 cm/sec PA pr(Accel): 20.8 mmHg E/E' lat: 8.6 E/e' average: 9.5 MV dec time: 0.21 sec SVJose AlbertoVANTAGE [facility]): 68.2 ml Electronically signed by: Vika Gonzales M.D. on Reading Physician:08/20/2022 12:47 PM
[2022-08-19] MEDS: risperiDONE 1 MG TABLET PO (22:56)
[2022-08-19] MEDS: ATORVASTATIN 20 MG TABLET 80 MG PO (22:56)
[2022-08-19] MEDS: CEFDINIR 300 MG CAPSULE PO (22:56)
[2022-08-19] MEDS: HEPARIN 5,000 UNIT/ML VIAL 5000 UNIT SUBCUT (22:56)
[2022-08-19] MEDS: lamoTRIgine 100 MG TABLET 200 MG PO (22:56)
[2022-08-20 02:16] VITALS: O2SAT 97
[2022-08-20 02:26] VITALS: BP 155/61; PULSE 62; RESP 16; TEMP 36.3; O2SAT 97
[2022-08-20 05:21] LABS: Add Manual Diff / Slide Review NO; Basophils Absolute Auto 100 /uL (0-100); Basophils Percent Auto 1.1 % (0-2); Eosinophils Absolute Auto 400 /uL (0-450); Eosinophils Percent Auto 7.1 % (2-4); Hematocrit 39.5 % (41-53); Hemoglobin 13.7 g/dL (13.5-17.5); Lymphocytes Absolute Auto 2300 /uL (1100-4500); Lymphocytes Percent Auto 38.3 % (25-40); Mean Corpuscular HGB Conc 34.7 % (30-36); Mean Corpuscular Hemoglobin 30.1 PG (26-34); Mean Corpuscular Volume 86.8 fL (80-100); Monocytes Absolute Auto 500 /uL (0-900); Monocytes Percent Auto 8.8 % (3-14); Neutrophils Absolute Auto 2700 /uL (1500-7000); Neutrophils Percent Auto 44.7 % (50-75); Platelet Count 158 X10^3/uL (150-400); Red Blood Cell Count 4.55 X10^6/uL (4.5-5.9); Red Cell Distribution Width 14.1 % (11.6-14.8)
[2022-08-20 05:30] LABS: BUN Creatinine Ratio 16.5 (6-22); Blood Urea Nitrogen 16 mg/dL (9-20); Calcium 8.3 mg/dL (8.4-10.2); Carbon Dioxide 28 mmol/L (22-32); Chloride 104 mmol/L (98-107); Cholesterol 167 mg/dL (140-199); Estimated Glomerular Filt Rate > 60 mL/min (>60); Glucose 89 mg/dL (80-110); HDL Cholesterol 41 mg/dL (40-60); HEMOLYSIS < 15 (0-50); LDL Cholesterol Calculated 97 mg/dL (<100); Potassium 3.7 mmol/L (3.4-5.1); Sodium 137 mmol/L (137-145); Triglycerides 145 mg/dL (35-150)
[2022-08-20 05:33] LABS: Hemoglobin A1C% w Est Avg Glu 5.1 % (4.0-6.0)
[2022-08-20 06:00] VITALS: O2SAT 97
[2022-08-20 07:30] VITALS: BP 137/72; PULSE 64; RESP 18; TEMP 36.6; O2SAT 95
[2022-08-20 10:00] VITALS: O2SAT 95
[2022-08-20] MEDS: HEPARIN 5,000 UNIT/ML VIAL 5000 UNIT SUBCUT (10:08)
[2022-08-20] MEDS: ASPIRIN EC 81 MG TABLET PO (10:08)
[2022-08-20] MEDS: CEFDINIR 300 MG CAPSULE PO (10:08)
--- NOTE | 2022-08-20 10:50 | ST.IPIE ---
Visit Care Team Role Provider Type Chris Clements MD Primary Care Provider Physician Specialty: Family Practice Address: [facility] [address], [place], [address] Email: [email or web address] Vinay Dawosn DO Emergency Provider Physician Referring Provider Specialty: Emergency Medicine Address: [address] [place] [address], [address] Email: [email or web address] Praveen Payne MD Admit Provider Physician Attending Provider Specialty: Hospitalist Address: [address] [place] [address], [id number] Fax: Email: [email or web address] Past Medical History (Last Reviewed 08/19/22 @ 21:03 by Praveen Payne MD) Low vitamin D level (Medical) ST IP Initial Evaluation Report ORE SMELTER Adult Cognitive Linguistic Eval Start: 08/20/22 10:39 Freq: Status: Active Protocol: Document 08/20/22 10:40 CG (Rec: 08/20/22 10:50 CG [id number]) Adult Cognitive Linguistic Evaluation Session Time Visit Start Time 10:25 Visit Stop Time 10:40 Total Visit Minutes 15 Referral Reason for Referral Neurological symptoms ?TIA Setting Assessment Location Acute Care Visit Type Note Type Initial evaluation Next Note Type Next Note Type Discharge Summary Patient Information Identification Type Name Education Level Associates degree Hearing Hearing Level Normal Previous Therapy Previous Speech-Language Therapy No Subjective Patient Report Pt states he is feeling well and double vision has resolved . He is alert, oriented, pleasant, and cooperative. Mental Status Alert,Responsive,Cooperative Assessment Oral Motor Examination Completed No: Oral motor structure/ function appear WFL Informal Assessment Receptive Language Normal Yes Expressive Language Normal Yes Pragmatic Language Normal Yes Speech Normal Yes Cognition Normal Yes Formal Assessment Standardized Test/Screener Type [facility] Mental Status (UMS) Administration Complete Results 27/30 - Normal per scoring guidelines. Points missed were for a calculation question in which pt stated I was thinking about remembering the five objects you told me so I didn't listen to the first number. When ORE SMELTER repeated the first number, pt was able to quickly and accurately complete the calculation. One other point missed was for not correctly recalling one of five objects after a delay. Findings/Results Language Function Within normal limits Cognitive Function Within normal limits Findings Overall, the pt presents with no speech or language deficits . Pt is able to understand simple and complex conversation, make jokes, and interact appropriately with ORE SMELTER. No articulation or motor planning difficulties are noted. Pt is oriented across concepts, able to follow multi -step directions, and able to complete basic calculations. Working/short term memory appear within normal limits. At this time, there is no concern for cognition or safety limitations. Prognosis Prognosis Good Based on Cognitive status Plan of Care Speech-Language Treatment No Patient/Caregiver Education Described results of evaluation,Patient expressed understanding of evaluation Discharge Recommendations Home
--- NOTE | 2022-08-20 11:06 | ST.IPIE ---
Visit Care Team Role Provider Type Chris Clements MD Primary Care Provider Physician Specialty: Family Practice Address: [facility] [address], [place], [address] Email: [email or web address] Vinay Dawson DO Emergency Provider Physician Referring Provider Specialty: Emergency Medicine Address: [address] [place] [address], [address] Email: [email or web address] Praveen Payne MD Admit Provider Physician Attending Provider Specialty: Hospitalist Address: [address] [place] [address], [address] Fax: Email: [email or web address] Medical History (Last Reviewed 08/19/22 @ 21:03 by Praveen Payne MD) Low vitamin D level (Medical) ST IP Initial Evaluation Report [employer] Adult Cognitive Linguistic Eval Start: 08/20/22 10:39 Freq: Status: Active Protocol: Document 08/20/22 10:40 CG (Rec: 08/20/22 10:50 CG [id number]) Adult Cognitive Linguistic Evaluation Session Time Visit Start Time 10:25 Visit Stop Time 10:40 Total Visit Minutes 15 Referral Reason for Referral Neurological symptoms ?TIA Setting Assessment Location Acute Care Visit Type Note Type Initial evaluation Next Note Type Next Note Type Discharge Summary Patient Information Identification Type Name Patient History Per H&P: Mr. Baeza is a 66M with PMH former smoker, high blood pressure not on any medications, bipolar, chronic bronchitis who presents to the hospital with double vision. He was traveling on the [place] and then when exiting noted he had double vision with one image above the other. He had no headache or fever. He also noted dizziness, left sided facial tingling. He had no chest pain or shortness of breath. No nausea, vomiting, or diarrhea. In the ED workup was done, vitals notable for afebrile, heart rate in the 60s, blood pressure 170s/90s. NIH initially was 4 and then on repeat was 0. Labs notable for WBC 7.6, hgb 14, plts 183. Na 139, k 4.0, creatinine 1.19. Trop negtive. EKG with no acute ischemia. CT head with no acute process. CTA head/ neck with no acute process. Telestroke was consulted and initially plan was for TPA, but as his symptoms resovled this was not gievn. His symptoms began at approximately 1800. He was given aspirin and admitted for further treatment. Education Level Associates degree Hearing Hearing Level Normal Previous Therapy Previous Speech-Language Therapy No Subjective Patient Report Pt states he is feeling well and double vision has resolved . He is alert, oriented, pleasant, and cooperative. Mental Status Alert,Responsive,Cooperative Assessment Oral Motor Examination Completed No: Oral motor structure/ function appear WFL Informal Assessment Receptive Language Normal Yes Expressive Language Normal Yes Pragmatic Language Normal Yes Speech Normal Yes Cognition Normal Yes Formal Assessment Standardized Test/Screener Type [facility] Mental Status ([facility]) Administration Complete Results - Normal per scoring guidelines. Points missed were for a calculation question in which pt stated I was thinking about remembering the five objects you told me so I didn't listen to the first number. When [employer] repeated the first number, pt was able to quickly and accurately complete the calculation. One other point missed was for not correctly recalling one of five objects after a delay. Findings/Results Language Function Within normal limits Cognitive Function Within normal limits Findings Overall, the pt presents with no speech or language deficits . Pt is able to understand simple and complex conversation, make jokes, and interact appropriately with [employer]. No articulation or motor planning difficulties are noted. Pt is oriented across concepts, able to follow multi -step directions, and able to complete basic calculations. Working/short term memory appear within normal limits. At this time, there is no concern for cognition or safety limitations. Prognosis Prognosis Good Based on Cognitive status Plan of Care Speech-Language Treatment No Patient/Caregiver Education Described results of evaluation,Patient expressed understanding of evaluation Discharge Recommendations Home
[2022-08-20 11:45] VITALS: BP 154/70; PULSE 66; RESP 20; TEMP 37.1; O2SAT 94
--- NOTE | 2022-08-20 13:07 | P.DS_ITS ---
History of Present Illness History of Present Illness Date Patient Seen: 08/20/22 Chief complaint: Double vision, L cheek slight numbness Narrative: Per admitting provider, Mr. Baeza is a 66M with PMH former smoker, high blood pressure not on any medications, bipolar, chronic bronchitis who presents to the hospital with double vision[place] noted he had double vision with one image above the other. He had no headache or fever. He also noted dizziness, left sided facial tingling. He had no chest pain or shortn ess of breath. No nausea, vomiting, or diarrhea. In the ED workup was done, vitals notable for afebrile, heart rate in the 60s, blood pressure 170s/90s. NIH initially was 4 and then on repeat was 0. Labs notable for WBC 7.6, hgb 14, plts 183. Na 139, k 4.0, creatinine 1.19. Trop negtive. EKG with no acute ischemia. CT head with no acute process. CTA head/neck with no acute process. Telestroke was consulted and initially plan was for TPA, but as his symptoms resovled this was not gievn. His symptoms began at approximately 1800. He was given aspirin and admitted for further treatment. Discharge Providers Provider Date of admission: 08/19/22 20:55 Discharge Date: 08/20/22 Primary care physician: Chris Clements MD Consults: 08/19/22 22:16 Consult to Occupational Therapy Evaluate & Treat Comment: Physician Instructions: Evaluate and treat Consult to Physical Therapy Evaluate & Treat Comment: Physician Instructions: Evaluate and Treat Consult to Speech Therapy Evaluate & Treat Comment: Physician Instructions: Evaluate and treat Discharge provider: Sly Crespo DO Summary Hospital Course Discharge Diagnosis: 1. Probable TIA 2. Chronic bronchitis 3. Bipolar disorder Hospital Course: This is a 66 year old male admitted after presenting with double vision and left sided facial numbness. tPA was planned in the ER, but his symptoms were improving and this was not given. His symptoms completely resolved. Imaging including head CT, CT angio head and neck, and MRI were unremarkable and showed no evidence of hemorrhage or acute infarcts. Infectious workup was unremarkable, as was urine drug screen. Given elevated ABCD2 score, patient was started on DAPT with aspirin (lifelong) and plavix for 21 days. Atorvastatin at high in tensity dosing was initiated as well for secondary stroke prevention. BP was mildly elevated but improved without medications, and follow up with PCP is recommended for further evaluation for possible antihypertensive medication depending on BP trends as an outpatient. Time Spent with Patient Time spent: Greater than 30 minutes Exam Vital Signs (past 8 hours): - 08/20/22 06:00 08/20/22 07:30 08/20/22 10:00 Temperature 97.8 F Pulse Rate 64 Respiratory Rate 18 Blood Pressure 137/72 Pulse Oximetry 97 95 95 Oxygen Delivery Method Room Air Room Air Oxygen Flow Rate 0 08/20/22 11:45 Temperature 98.8 F Pulse Rate 66 Respiratory Rate 20 Blood Pressure 154/70 H Pulse Oximetry 94 Oxygen Delivery Method Oxygen Flow Rate 0 Oxygen Delivery Method Room Air Oxygen Flow Rate 0 Narrative Exam Narrative: GEN: no acute distress HEENT: moist mucous membranes, PERRL NECK: trachea midline, no jvd PULM: clear bilaterally, no wheezes, rhonchi, rales CV: regular rate and rhythm, no murmurs ABD: soft, nontender, nondistended, no organomegaly EXT: warm and well perfused, with no edema NEURO: awake, alert, oriented, no focal deficits noted, CN 2-12 intact, upper and lower extremity strength 5/5 Objective Labs 08/20/22 04:50 08/20/22 04:50 Labs: Laboratory Results - last 24 hr 08/19/22 08/19/22 08/19/22 18:23 18:23 18:23 WBC 7.6 RBC 4.61 Hgb 14.0 Hct 40.7 L MCV 88.4 MCH 30.4 MCHC 34.4 RDW 13.9 Plt Count 183 Neut % (Auto) 53.8 Lymph % (Auto) 30.6 [place] % (Auto) 9.3 Eos % (Auto) 5.6 H Baso % (Auto) 0.7 Neut # (Auto) 4100 Lymph # (Auto) 2300 [place] # (Auto) 700 Eos # (Auto) 400 Baso # (Auto) 100 PT 11.5 INR 1.0 APTT 34 Sodium 139 Potassium 4.0 Chloride 104 Carbon Dioxide 27 BUN 17 Creatinine 1.19 Estimated GFR > 60 BUN/Creatinine Ratio 14.3 Glucose 89 Hemoglobin A1c Calcium 8.8 Total Bilirubin 0.4 AST 24 ALT 27 Alkaline Phosphatase 69 Total Creatine Kinase 66 CK-MB (CK-2) TNP CK-MB (CK-2) Rel Index TNP Troponin I < 0.012 Total Protein 7.1 Albumin 4.3 Globulin 2.8 Albumin/Globulin Ratio 1.5 Triglycerides Cholesterol LDL Cholesterol, Calc HDL Cholesterol Urine Color Urine Appearance Urine pH Ur Specific [place] Urine Protein Urine Glucose (UA) Urine Ketones Urine Occult Blood Urine Nitrate Urine Bilirubin Urine Urobilinogen Ur Leukocyte Esterase Urine RBC Urine WBC Ur Squamous Epith Cells Urine Bacteria Ur Culture Indicated? U Opiates 300ng/mL cut Ur Oxycodone Screen Urine Methadone Screen Ur Barbiturates Screen U Tricyclic Antidepress Ur Phencyclidine Scrn Ur Amphetamines Screen U Methamphetamines Scrn Ur MDMA Scrn (Ecstasy) U Benzodiazepines Scrn Urine Cocaine Screen U Marijuana (THC) Screen Ethyl Alcohol < 10 SARS-CoV-2 (PCR) 08/19/22 08/19/22 08/19/22 19:16 19:23 19:37 WBC RBC Hgb Hct MCV MCH MCHC RDW Plt Count Neut % (Auto) Lymph % (Auto) [place] % (Auto) Eos % (Auto) Baso % (Auto) Neut # (Auto) Lymph # (Auto) [place] # (Auto) Eos # (Auto) Baso # (Auto) PT INR APTT Sodium Potassium Chloride Carbon Dioxide BUN Creatinine Estimated GFR BUN/Creatinine Ratio Glucose Hemoglobin A1c Calcium Total Bilirubin AST ALT Alkaline Phosphatase Total Creatine Kinase CK-MB (CK-2) CK-MB (CK-2) Rel Index Troponin I Total Protein Albumin Globulin Albumin/Globulin Ratio Triglycerides Cholesterol LDL Cholesterol, Calc HDL Cholesterol Urine Color Yellow Urine Appearance Clear Urine pH 6.5 Ur Specific [place] <=1.005 Urine Protein Negative Urine Glucose (UA) Negative Urine Ketones Negative Urine Occult Blood Negative Urine Nitrate Negative Urine Bilirubin Negative Urine Urobilinogen 0.2 Ur Leukocyte Esterase Negative Urine RBC None seen Urine WBC 0-1/hpf Ur Squamous Epith Cells 0-1 /hpf Urine Bacteria None seen Ur Culture Indicated? Cult not indicated U Opiates 300ng/mL cut Negative Ur Oxycodone Screen Negative Urine Methadone Screen Negative Ur Barbiturates Screen Negative U Tricyclic Antidepress Negative Ur Phencyclidine Scrn Negative Ur Amphetamines Screen Negative U Methamphetamines Scrn Negative Ur MDMA Scrn (Ecstasy) Negative U Benzodiazepines Scrn Negative Urine Cocaine Screen Negative U Marijuana (THC) Screen Negative Ethyl Alcohol SARS-CoV-2 (PCR) Negative 08/20/22 08/20/22 08/20/22 04:50 04:50 04:50 WBC 6.0 RBC 4.55 Hgb 13.7 Hct 39.5 L MCV 86.8 MCH 30.1 MCHC 34.7 RDW 14.1 Plt Count 158 Neut % (Auto) 44.7 L Lymph % (Auto) 38.3 [place] % (Auto) 8.8 Eos % (Auto) 7.1 H Baso % (Auto) 1.1 Neut # (Auto) 2700 Lymph # (Auto) 2300 [place] # (Auto) 500 Eos # (Auto) 400 Baso # (Auto) 100 PT INR APTT Sodium 137 Potassium 3.7 Chloride 104 Carbon Dioxide 28 BUN 16 Creatinine 0.97 Estimated GFR > 60 BUN/Creatinine Ratio 16.5 Glucose 89 Hemoglobin A1c 5.1 Calcium 8.3 L Total Bilirubin AST ALT Alkaline Phosphatase Total Creatine Kinase CK-MB (CK-2) CK-MB (CK-2) Rel Index Troponin I Total Protein Albumin Globulin Albumin/Globulin Ratio Triglycerides 145 Cholesterol 167 LDL Cholesterol, Calc 97 HDL Cholesterol 41 Urine Color Urine Appearance Urine pH Ur Specific [place] Urine Protein Urine Glucose (UA) Urine Ketones Urine Occult Blood Urine Nitrate Urine Bilirubin Urine Urobilinogen Ur Leukocyte Esterase Urine RBC Urine WBC Ur Squamous Epith Cells Urine Bacteria Ur Culture Indicated? U Opiates 300ng/mL cut Ur Oxycodone Screen Urine Methadone Screen Ur Barbiturates Screen U Tricyclic Antidepress Ur Phencyclidine Scrn Ur Amphetamines Screen U Methamphetamines Scrn Ur MDMA Scrn (Ecstasy) U Benzodiazepines Scrn Urine Cocaine Screen U Marijuana (THC) Screen Ethyl Alcohol SARS-CoV-2 (PCR) [facility] Medical History Low vitamin D level Social History household members: none Smoking Status: Former smoker alcohol intake: never Discharge Plan Discharge Plan Patient Disposition: Home Provider Discharge Comment: You were admitted to the hospital with stroke like symptoms. MRI was negative and echocardiogram also appeared normal. This was likely due to a mini-stroke, or TIA. This is treated essentially the same with medications designed to reduce your risk of stroke in the future. Watch your BP at home, keep a log so that your primary care provider can see your trend and see if a medication may be beneficial or not. Discharge orders & Medications Prescriptions: New aspirin 81 mg Tablet,Delayed Release (Dr/Ec) 81 mg PO DAILY 90 Days Qty: 90 0RF atorvastatin 40 mg tablet 40 mg PO BEDTIME 90 Days Qty: 90 0RF clopidogrel 75 mg tablet 75 mg PO DAILY 21 Days Qty: 21 0RF Continued risperidone 1 mg tablet 1 mg PO DAILY lamotrigine 200 mg tablet 100 mg PO DAILY bupropion HCl 100 mg tablet 50 mg PO DAILY Follow up/Referrals: Chris Clements MD [Primary Care Provider] - 2 Weeks Diet/Activity/Treatments Diet: Diet as Tolerated and Low-sodium Activity: As tolerated Visit Report/Discharge Packet Instructions: DI for Transient Ischemic Attack, Low-Sodium Diet, Atorvastatin, Clopidogrel Stand Alone Forms: Patient Portal/API, Stroke Signs & Symptoms Discharge Data Primary Care Provider: Chris Clements Attending Provider: Praveen Payne
--- NOTE | 2022-08-20 13:45 | PT.IIE ---
Medical History (Last Reviewed 08/19/22 @ 21:03 by Praveen Payne MD) Low vitamin D level Physical Therapy Inpatient Evaluation/Re-Eval M1 PT/OT-IP Prior Functional Status Start: 08/20/22 14:02 Freq: NEEDED Status: Discharge Protocol: Document 08/20/22 13:45 DLM (Rec: 08/20/22 14:16 DLM [id number]) Medical Review Prior Functional Status Medical History Reviewed Yes Diet/Fluid Consistency Regular Communication WNL, glasses for reading Mobility and Gait Independent without device, ambulates in community, he walks for exercise to/from work Activities of Daily Living and IADL's Independent, works desk job Social History Household Members none Living Arrangements RV Number of Floors (Floors) One Floor Number of Stairs To Enter/Railing? 3 steps to enter with rail, 2 steps inside RV to bathroom without rail but arellano close if needed Home Environment Standard Height Toilet,Walk in Shower Home Equipment Grab Bars Near Toilet Employment Status Automatic Transmission Mechanic Employed M2 PT-IP Current Condition Start: 08/20/22 14:02 Freq: NEEDED Status: Discharge Protocol: Document 08/20/22 13:45 DLM (Rec: 08/20/22 14:16 DL [id number]) Physical Therapy Current Condition Current Condition Evaluation Date 08/20/22 Treatment Diagnosis double vision, rule out CVA Onset Date 08/19/22 M3 PT-IP Subjective Start: 08/20/22 14:02 Freq: NEEDED Status: Discharge Protocol: Document 08/20/22 13:45 DLM (Rec: 08/20/22 14:16 DL [id number]) Subjective Physical Therapy Visit Type Type Initial Evaluation Visit Start Time 13:25 Visit Stop Time 13:45 Total Visit Minutes 20 Number of PHARMACY ORDER ENTRY TECHNICIAN Visits 0 Physical Therapy Visit Comments Patient Comments He reports his symptoms have resolved. He reports his head feels a little funny when up moving but gets better as he moves. Patient Goals discharge home Therapy Pain Assessment Pain Present Pain Present Denied Pain M4 PT-IP Mobility and Gait Start: 08/20/22 14:02 Freq: NEEDED Status: Discharge Protocol: Document 08/20/22 13:45 DLM (Rec: 08/20/22 14:16 DL [id number]) PT-Bed Mobility Assessment Rolling Level of Assist Independent Supine to Sit Supine to Sit Independent Sit to Supine Sit to Supine Independent Scooting Scooting to Edge of Bed Independent Scooting Up and Down in Bed Independent PT-Transfer Assessment Sit to and From Stand Sit to and from Stand Independent Equipment Transfer Assistive Device None Transfers Transfer Destination Bed,Chair Transfer Technique Stand Step Pivot Transfer Ability Level of Assist Independent Comments Mobility Comments pt moving without difficulty, good balance demonstrated, no device needed Gait Assessment Gait Gait Assistance Required: Independent Distance (Feet) 500 Assistive Devices Assistive Device None Comments Gait Comments no losses of balance during gait without device, he describes his head feeling a little funny but it improved as he ambulated, notified his nurse of his symptoms Stair Climbing Assessment Evaluation Level of Assist On Stairs Independent Devices Stair Climbing Assistive Devices None Technique/Endurance Stair Climbing Direction Ascend and Descend Stair Climbing Technique Step Over Step Number of Steps Climbed 3 Query Text: Stair Climbing Set # Repetitions (reps) 1 Comments Stair Climbing Comments good functional strength and balance on the stairs PT-Balance Assessment Sitting Balance and Reactions Static Sitting Balance Ability Normal Dynamic Sitting Balance Ability Normal Standing Balance and Reactions Static Standing Balance Ability Normal Dynamic Standing Balance Ability Normal Device Used none Balance Tests Single Limb Standing right 3 sec, left greater than 10 sec Romberg WNL Tandem Standing able to hold at least 30 sec Allison Balance Test Score 56/56 Query Text:Score Functional Assessments Functional Tests Tinetti Balance and Gait Assessment M5 PT-IP Objective Assessments Start: 08/20/22 14:02 Freq: NEEDED Status: Discharge Protocol: Document 08/20/22 13:45 DLM (Rec: 08/20/22 14:16 DLM [id number]) Orientation Orientation/Cognition Level of Alertness Alert Orientation Name,Age,Birthday,Month,Date, Year,Day of Week,Place, Situation Language Function Ability No Deficits Noted Safety Awareness Understands Safety Issues Memory Description No Deficits Noted Gross Range of Motion Upper Extremity ROM Assessment Within Functional Limits Lower Extremity ROM Assessment Within Functional Limits Strength Upper Extremity Strength Assessment Within Functional Limits Lower Extremity Strength Assessment Within Functional Limits Coordination Assessment Gross Coordination Gross Coordination WNL Sensation Assessment Sensation Gross Sensation WNL Muscle Tone Muscle Tone WNL Yes M6 PT-IP Treatment Start: 08/20/22 14:02 Freq: NEEDED Status: Discharge Protocol: Document 08/20/22 13:45 DLM (Rec: 08/20/22 14:16 DLM [id number]) Physical Therapy Treatment Education Education Provided Safety M7 PT-IP Assessment and Plan Start: 08/20/22 14:02 Freq: NEEDED Status: Discharge Protocol: Document 08/20/22 13:45 DLM (Rec: 08/20/22 14:16 DLM [id number]) PT Summary Assessment and Plan Potential Rehabilitation Potential Excellent Status of Condition at Evaluation Evolving Summary Assessment Summary Silvio is alert and resting in bed. He reports his vision has returned to normal. He has no complaints today. He demonstrates independent mobility and gait without a device this visit. His strength is WNL. He demonstrates a mild decrease in right single limb standing balance compared to left but it does not limit his gait nor stairs. No skilled physical therapy needs identified at this time. He appears safe to discharge home when medically cleared. Frequency of Treatment Frequency Of Treatment Discharge Treatment Plan Other Recommendations and Next Treatment no skilled physical therapy Focus needed at this time Recommendations To Nursing Amount of Assist Needed Independent Discharge Recommendations PT Discharge Recommendations Home Transportation Needs at Discharge Private Vehicle
--- NOTE | 2022-08-20 13:57 | PC.NURSE ---
Patient d/c teaching done at bedside. Patient is aware of new medications and written info handouts provided. Patient's questions and concerns are addressed and is aware to f/u with PCP with in the week and for new medication management. IV and tele removed. PT indep. in room and was able to get dressed without help. VSS, patient left in stable condition, escorted (walking) down to private vehicle by staff.
== END 2022-08-20 14:10 | disposition home or self-care (01) ==
LOC: ED 18:23 → AC 20:55
PROVIDERS: Admitting Provider Internal Medicine; Emergency Provider Emergency Medicine; PCP Family Medicine; Referring Provider Emergency Medicine; Visit Provider Internal Medicine
DX: H53.2 Diplopia (principal); R42 Dizziness and giddiness; R29.704 NIHSS score 4; F31.9 Bipolar disorder, unspecified; J42 Unspecified chronic bronchitis; Z20.822 Contact with and (suspected) exposure to COVID-19
CPT/HCPCS: 36415; 70450; 70496; 70498; 70551; 80048; 80053; 80061; 80305; 80320; 81001; 81003; 82550; 82962; 83036; 84484; 85025; 85610; 85730; 87635; 92523; 93005; 93010; 93306; 96372; 97161; 99285; C9803; G0378; J1644; Q9967

== ENCOUNTER → 2023-12-12 11:23 | Outpatient (CLI) | payer MEDICARE, OTHER, SELFPAY ==
[2022-08-19 22:19] VITALS: BMI 38.0
--- NOTE | 2023-12-12 11:27 | DI.MRI.S_ITS ---
PROCEDURE: MR HEAD/BRAIN WO CON INDICATIONS: COGNITIVE FUNCTION TECHNIQUE: Non-contrast axial T1 spin echo, axial T2 fast spin echo, sagittal and axial FLAIR, coronal T2 fast spin echo, axial gradient echo, axial diffusion and ADC through the brain. COMPARISON: [facility], MR, MR HEAD/BRAIN WO/W CON, 02/25/2022, 19:49. [facility], CT, CT ANGIO HEAD AND NECK, 08/19/2022, 18:27. [facility], CT, CT STROKE, 08/19/2022, 18:27. [facility], MR, MR HEAD/BRAIN WO CON, 08/20/2022, 7:30. FINDINGS: Image quality: Excellent. CSF spaces: Ventricles appear symmetric in size and shape. Basal cisterns are patent. No extra-axial fluid collections. Brain: No intracranial bleeds or mass effects. There is cerebral volume loss for age. There are periventricular and deep white matter chronic small vessel ischemic changes. Brainstem appears normal. Diffusion-weighted images show no acute infarct. No chronic ischemic insults. Normal intravascular flow voids are present. Skull and face: Calvarial bone marrow is normal in signal. Orbits are normal. Sinuses: Sinuses and mastoids are clear. IMPRESSION: Normal appearing brain MRI for age, without a cause of the presenting history identified. No findings of acute or subacute infarction can be seen. No prior territorial infarct can be seen. Dictated by: Piotr Rose M.D. on 12/12/2023 at 11:52 Approved by: Piotr Rose M.D. on 12/12/2023 at 11:56
== END ==
PROVIDERS: PCP Family Medicine; Referring Provider Family Medicine; Visit Provider Family Medicine
DX: R41.89 Other symptoms and signs involving cognitive functions and awareness (principal)
CPT/HCPCS: 70551